=== PATIENT | male | born 1965 | race Caucasian/White ===

== ENCOUNTER 2016-08-10 18:13 | Emergency (ER) | payer MEDICAID ==
[2016-09-10 10:59] VITALS: BMI 23.8
== END 2016-08-10 21:35 | disposition left against medical advice (07) ==
LOC: D.ER 18:13
DX: S99.911A Unspecified injury of right ankle, initial encounter (principal)

== ENCOUNTER 2016-09-08 16:36 | Emergency (ER) | payer MEDICAID ==
[2016-09-10 10:59] VITALS: BMI 23.8
== END 2016-09-08 20:39 | disposition home or self-care (01) ==
LOC: D.ER 16:36
DX: M79.671 Pain in right foot (principal); Z76.5 Malingerer [conscious simulation]

== ENCOUNTER 2016-09-09 15:58 | Inpatient (IN) | payer MEDICAID ==
[~2016-09-09] VITALS: Ht 167.6 cm; Wt 67.0 kg
--- NOTE | ~2016-09-09 | HP ---
PATIENT: IBRAHIMA CHAVEZ MEDICAL RECORD: [id number] ACCOUNT: [id number] LOCATION:[id number] : 67 ADMISSION DATE: 09/09/16 HISTORY AND PHYSICAL EXAMINATION DATE OF OBSERVATION: 09/09/2016. 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 HISTORY OF PRESENT ILLNESS: This is a 50-year-old white male who came to [facility] yesterday complaining of right foot pain. He had x-rays of his foot and ankle and all the x-rays were negative. He was placed in a boot. The patient states that he fell down a grassy slope about a month ago, has been hurting ever since. He states his primary care doctor is Dr. Butcher but has not gone to see Dr. Butcher about this. I am not sure what was done in the Emergency Room on September 08, but when he came in on September 09, his blood alcohol level was 445. He became less responsive while he was in the hospital and he is assigned to observation. Urine drug screen was positive for benzodiazepines and he is admitted for further evaluation. In the ER, he was given Romazicon and ____, he did wake up to a degree. PAST MEDICAL AND SURGICAL HISTORY: Unknown. CURRENT MEDICATIONS: Denies any regular medications. HABITS: He quit smoking. He does admit to drinking about a pint of vodka every other day. He denies any illicit drug use. SOCIAL HISTORY: He lives alone. He is unemployed. FAMILY HISTORY: Father in his 30s in a helicopter crash. Mother at 53 of probable [place]. REVIEW OF SYSTEMS: Really not obtainable because he is mumbling most of his words. He is felt not to be reliable this time. PHYSICAL EXAMINATION: VITAL SIGNS: In the Emergency Room, temperature 98.2, pulse 72, respirations 16, blood pressure 111/71, O2 sats 100%. GENERAL: He will awaken, but basically mumbles most of his answers. SKIN: Warm and dry. HEENT: Grossly within normal limits. NECK: Supple. HEART: Regular rate and rhythm. LUNGS: Fairly clear. ABDOMEN: Soft, flat, nontender. EXTREMITIES: Right foot and ankle are out of the boot and I do not see any obvious deformity. There is no change in color, texture or temperature of the skin. He has generalized tenderness over the foot. X-ray report from yesterday of the ankle showed no acute fracture. X-ray report from yesterday of the foot showed no acute fracture. LABORATORY DATA: Magnesium was 1.9. Urine drug screen positive for benzodiazepines. CBC was essentially normal. Comprehensive metabolic panel is essentially normal. Blood alcohol level 445. HISTORY AND PHYSICAL [id number] IBRAHIMA CHAVEZ IMAGING: CT of the head was done and no acute intracranial process was seen. ASSESSMENT: 1. Acute alcohol intoxication. 2. Right foot pain, uncertain etiology. We will monitor overnight. Other tests and procedures as warranted. TRANSINT:[id number] Voice Confirmation ID: [id number] DOCUMENT ID: [id number] LAVERNE MULLINS MD CC: [id number] DICTATION DATE: 09/10/16 1604 COOKER OPERATOR: 09/10/16 1713 DIS IN 09/10/16 [facility] [address] [place] [address]
[2016-09-09 17:39] LABS: BASOPHILS 1.2 % (0.0-2.0); EOSINOPHILS 0.2 % (0-7); HEMATOCRIT 39.9 % (42.0-54.0); HEMOGLOBIN 13.2 g/dL (13.5-17.5); IMMATURE GRANULOCYTES 0.2 % (0-5); LYMPHOCYTES 22.2 % (15-50); MCH 31.3 pg (26.0-34.0); MCHC 33.1 g/dL (31.0-37.0); MCV 94.5 fL (80.0-100.0); MEAN PLATELET VOLUME 8.7 fL (7.4-10.4); MONOCYTES 9.1 % (2-11); NEUTROPHILS 67.1 % (40-80); PLATELET COUNT 284 10x3/uL (130-400); RBC 4.22 10x6/uL (4.20-6.10); RDW 14.3 % (11.5-14.5); WBC 5.7 10x3/uL (4.8-10.8)
[2016-09-09 17:59] LABS: ALBUMIN 3.8 g/dL (3.4-5.0); ALKALINE PHOSPHATASE 67 U/L (46-116); ALT (SGPT) 23 U/L (10-68); BILIRUBIN - TOTAL 0.15 mg/dL (0.2-1.3); CALC OSMOLALITY 285 mosm/kg (275-300); CALCIUM 8.4 mg/dL (8.5-10.1); CARBON DIOXIDE 26.8 mmol/L (21.0-32.0); CHLORIDE - SERUM 103 mmol/L (98-107); CREATININE - SERUM 0.7 mg/dL (0.6-1.3); GLUCOSE 156 mg/dL (74-106); POTASSIUM - SERUM 3.8 mmol/L (3.5-5.1); PROTEIN - SERUM 7.5 g/dL (6.4-8.2); SODIUM 142 mmol/L (136-145); UREA NITROGEN 12 mg/dL (7-18); eGFR NON AFRICAN AMERICAN > 90 mL/min (90-120)
[2016-09-09 18:02] LABS: UDS - AMPHET NEGATIVE QUAL (NEGATIVE); UDS - BARB NEGATIVE QUAL (NEGATIVE); UDS - BENZO POSITIVE QUAL (NEGATIVE); UDS - COCAINE NEGATIVE QUAL (NEGATIVE); UDS - METH NEGATIVE QUAL (NEGATIVE); UDS - OPIATE NEGATIVE QUAL (NEGATIVE); UDS - PCP NEGATIVE QUAL (NEGATIVE); UDS - THC NEGATIVE QUAL (NEGATIVE)
--- NOTE | 2016-09-09 22:15 | NUR ---
ARRIVED TO ROOM CV-05 VIA STRETCHER. COMPLETELY SATURATED IN URINE IN THE PERINEAL AREA AND BEHIND BACK. STREET CLOTHES REMOVED AND PLACED INTO HOSPITAL GOWN. MOVED SELF ONTO HOSPITAL BED SLOWLY. LEFT AC 20G PIV INTACT WITH A BANANA BAG INFUSING. PLACED ON IV PUMP @ 150ML/HR. PLACED ONTO CONTINUOUS CARDIAC MONITORING. NSR IN THE 70'S. 02 ON @ 2LPM/NC, DECREASED TO 1LPM. O2 SATS 100%. LUNG SOUNDS CLEAR, DIMINISHED IN THE BASES. SHALLOW RESPIRATIONS NOTED. URINAL PLACED ON SIDERAIL AND CALL BUTTON EXPLAINED. C/O RT FOOT PAIN. RT FOOT WITH +1 EDEMA TO ANKLE AREA. REPORTS WHEN ASKED HE BROKE IT. BRACE NOTED IN PATIENT BELONGING BAG. COMPLETE WIPE DOWN WITH BATH CLOTHES COMPLETED. IN PANTS POCKET: BLACK FLIP CELL PHONE; [facility]. ER CALLED TO GET PLACED IN SAFE. WILL MONITOR.
[2016-09-09 22:20] VITALS: BP 111/71
[2016-09-09 22:36] VITALS: BP 111/71; BMI 23.9
[2016-09-09 23:00] VITALS: BP 113/67
[2016-09-09 23:30] VITALS: BP 81/41
--- NOTE | 2016-09-09 23:56 | NUR ---
B/P TRENDING DOWN WHILE HE IS RESTIGN WITH EYES CLOSED. AWOKE AND TOOK B/P WHILE AWAKE AND SYSTOLIC 100'S. DENIES NEEDS WHEN ASKED. WILL MONITOR.
[2016-09-10] VITALS (20 sets, daily range): BP systolic 87–111; BP diastolic 46–69; Ht 167.6 cm; Wt 67.0 kg
--- NOTE | 2016-09-10 01:30 | NUR ---
EYES CLOSED. NO ACUTE DISTRESS NOTED. WILL MONITOR.
--- NOTE | 2016-09-10 02:44 | NUR ---
AWOKE AND SAT UP IN BED. ORIENTED TO THE HOSPITAL. DISORIENTED TO SITUATION. REORIENTED. WANTED ANOTHER WARM BLANKET AND SOME WATER. BLANKET GIVEN AND REASSESSMENT COMPLETED. SEE ASSESSMENT FLOWSHEET. MORE ALERT AT THIS TIME. DRANK 240ML OF WATER. BED ALARM TURNED BACK ON AFTER ALARMING WHEN HE SAT UP. WILL MONITOR.
--- NOTE | 2016-09-10 03:10 | NUR ---
URINATED 475ML OF CLEAR, ANABEL URINE INTO URINAL. MORE AWAKE AND CAN UNDERSTAND SPEECH MORE. TOLD HIM I WAS WAITING ON ER PERSONEL TO COME TAKE BELONGINGS TO SAFE SUCH WALLET ETC SITTING ON BEDSIDE TABLE. LOOKED AT WALLET AND WHEN WAS TOLD IT GOT WET FROM URINATING ON HIMSELF, HE PICKED UP THE WALLET AND SMELLED OF IT.
--- NOTE | 2016-09-10 03:40 | NUR ---
CALLED ER REGISTRATION TO COME GET VALUABLES. WILL NOT BE AVAILABLE TO COME TILL 8AM. INFORMED PATIENT OF SUCH.
--- NOTE | 2016-09-10 04:15 | NUR ---
ASKING FOR PAIN MEDICATION. INFORMED OF B/P LOW AND NOT ABLE TO HAVE ANY ORDERED AT THIS TIME. WILL MONITOR.
--- NOTE | 2016-09-10 04:30 | NUR ---
REMOVED O2. ON ROOM AIR O2 SATS 96%. WILL MONITOR.
--- NOTE | 2016-09-10 05:05 | NUR ---
SINGING TO HIMSELF.
--- NOTE | 2016-09-10 06:25 | NUR ---
EYES CLOSED. NO ACUTE DISTRESS NOTED. WILL MONITOR.
--- NOTE | 2016-09-10 07:53 | NUR ---
RECIEVED ASLEEP-REGULAR RESP -SR ON MONITOR-NOTED -STRONG ALCOHOL [id number] FROM PT-[facility]
[2016-09-10] MEDS ORDERED: TYLENOL W/CODEI1 TAB PO (16:10)
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
== END 2016-09-10 16:36 | disposition home or self-care (01) | DRG 897 ==
LOC: D.ER 15:58 → D.CLR 20:32 → D.CVICU 21:47
PROVIDERS: Nurse Practitioner Family; ADMIT Family Medicine
DX: F10.129 Alcohol abuse with intoxication, unspecified (principal); Y90.8 Blood alcohol level of 240 mg/100 ml or more; Z87.891 Personal history of nicotine dependence; M79.671 Pain in right foot

== ENCOUNTER 2016-09-30 10:48 | Emergency (ER) | payer MEDICAID ==
[2016-09-10 10:59] VITALS: BMI 23.8
[~2016-09-30 10:48] MED LIST: TYLENOL W/CODEI1 TAB PO
== END 2016-09-30 12:30 | disposition home or self-care (01) ==
LOC: D.ER 10:48
DX: M79.671 Pain in right foot (principal); M25.561 Pain in right knee

== ENCOUNTER 2016-09-30 14:24 | Emergency (ER) | payer MEDICAID | END 2016-09-30 16:38 | disposition left against medical advice (07) | LOC: D.ER 14:24 | DX: S80.01XA Contusion of right knee, initial encounter (principal); W10.9XXA Fall (on) (from) unspecified stairs and steps, initial encounter; Y93.89 Activity, other specified; Y92.89 Other specified places as the place of occurrence of the external cause; F17.200 Nicotine dependence, unspecified, uncomplicated ==

== ENCOUNTER 2016-10-01 16:29 | Emergency (ER) | payer MEDICAID ==
[2016-09-10 10:59] VITALS: BMI 23.8
== END 2016-10-01 17:30 | disposition home or self-care (01) ==
LOC: D.ER 16:29
DX: S80.01XA Contusion of right knee, initial encounter (principal); W10.9XXA Fall (on) (from) unspecified stairs and steps, initial encounter; Y93.89 Activity, other specified; Y92.019 Unspecified place in single-family (private) house as the place of occurrence of the external cause; F17.200 Nicotine dependence, unspecified, uncomplicated

== ENCOUNTER 2016-10-02 10:34 | Emergency (ER) | payer MEDICAID ==
[2016-09-10 10:59] VITALS: BMI 23.8
== END 2016-10-02 12:37 | disposition home or self-care (01) ==
LOC: D.ER 10:34
DX: M25.561 Pain in right knee (principal)

== ENCOUNTER 2016-10-08 11:24 | Emergency (ER) | payer MEDICAID ==
[2016-09-10 10:59] VITALS: BMI 23.8
== END 2016-10-08 13:15 | disposition home or self-care (01) ==
LOC: D.ER 11:24
DX: S00.03XA Contusion of scalp, initial encounter (principal); W10.9XXA Fall (on) (from) unspecified stairs and steps, initial encounter; Y93.89 Activity, other specified; Y92.89 Other specified places as the place of occurrence of the external cause; M25.561 Pain in right knee; M25.571 Pain in right ankle and joints of right foot

== ENCOUNTER 2016-10-09 01:09 | Emergency (ER) | payer MEDICAID ==
[2016-09-10 10:59] VITALS: BMI 23.8
[2016-10-09 03:44] LABS: UDS - AMPHET NEGATIVE QUAL (NEGATIVE); UDS - BARB NEGATIVE QUAL (NEGATIVE); UDS - BENZO POSITIVE QUAL (NEGATIVE); UDS - COCAINE NEGATIVE QUAL (NEGATIVE); UDS - METH NEGATIVE QUAL (NEGATIVE); UDS - OPIATE NEGATIVE QUAL (NEGATIVE); UDS - PCP NEGATIVE QUAL (NEGATIVE); UDS - THC NEGATIVE QUAL (NEGATIVE)
== END 2016-10-09 13:50 | disposition home or self-care (01) ==
LOC: D.ER 01:09
PROVIDERS: Emergency Medicine
DX: S93.601A Unspecified sprain of right foot, initial encounter (principal); W10.9XXA Fall (on) (from) unspecified stairs and steps, initial encounter; Y93.89 Activity, other specified; Y92.019 Unspecified place in single-family (private) house as the place of occurrence of the external cause; F10.10 Alcohol abuse, uncomplicated; F17.200 Nicotine dependence, unspecified, uncomplicated

== ENCOUNTER 2016-11-08 00:29 | Emergency (ER) | payer MEDICAID ==
[2016-09-10 10:59] VITALS: BMI 23.8
[2016-11-08 01:08] LABS: BASOPHILS 0.3 % (0-2); EOSINOPHILS 1.5 % (0-7); HEMATOCRIT 37.5 % (42.0-54.0); HEMOGLOBIN 12.4 g/dL (13.5-17.5); IMMATURE GRANULOCYTES 0.3 % (0-5); LYMPHOCYTES 21.1 % (15-50); MCH 31.8 pg (26.0-34.0); MCHC 33.1 g/dL (31.0-37.0); MCV 96.2 fL (80.0-100.0); MONOCYTES 7.4 % (2-11); NEUTROPHILS 69.4 % (40-80); PLATELET COUNT 248 10x3/uL (130-400); RDW 15.1 % (11.5-14.5); WBC 7.3 10x3/uL (4.8-10.8)
[2016-11-08 01:30] LABS: ALBUMIN 3.7 g/dL (3.4-5.0); ALKALINE PHOSPHATASE 72 U/L (46-116); ALT (SGPT) 27 U/L (10-68); CALC OSMOLALITY 289 mosm/kg (275-300); CALCIUM 8.5 mg/dL (8.5-10.1); CARBON DIOXIDE 27.2 mmol/L (21.0-32.0); CHLORIDE - SERUM 110 mmol/L (98-107); CREATININE - SERUM 0.9 mg/dL (0.6-1.3); POTASSIUM - SERUM 3.5 mmol/L (3.5-5.1); PROTEIN - SERUM 7.3 g/dL (6.4-8.2); SODIUM 146 mmol/L (136-145); UREA NITROGEN 9 mg/dL (7-18); eGFR NON AFRICAN AMERICAN > 90 mL/min (90-120)
[2016-11-08 01:31] LABS: GLUCOSE 101 mg/dL (74-106)
== END 2016-11-08 03:56 ==
LOC: D.ER 00:29
PROVIDERS: Emergency Medicine
DX: S39.012A Strain of muscle, fascia and tendon of lower back, initial encounter (principal); S33.5XXA Sprain of ligaments of lumbar spine, initial encounter; W19.XXXA Unspecified fall, initial encounter; F10.129 Alcohol abuse with intoxication, unspecified

== ENCOUNTER 2017-11-11 21:11 | Emergency (ER) | payer MEDICAID ==
[~2017-11-11] VITALS: Ht 167.6 cm; Wt 73.2 kg
[2017-11-11 21:14] VITALS: Ht 167.6 cm; Wt 73.2 kg
[2017-11-11] MEDS ORDERED: CLONAZEPAM2 MG/TAB PO (21:18)
[2017-11-11] MEDS ORDERED: VISTARIL50 MG PO (21:18)
[2017-11-11] MEDS ORDERED: KLONOPIN1 MG PO (22:17)
[2017-11-11 22:32] VITALS: BP 128/79
== END 2017-11-11 22:30 | disposition home or self-care (01) ==
LOC: D.ER 21:11
DX: F41.1 Generalized anxiety disorder (principal)

== ENCOUNTER 2019-02-17 18:52 | Emergency (ER) | payer MEDICAID ==
[~2019-02-17] VITALS: Ht 167.6 cm; Wt 71.8 kg
[2019-02-17 18:52] VITALS: BP 123/82; Ht 167.6 cm; Wt 71.8 kg
[~2019-02-17 18:52] MED LIST changes: +CLONAZEPAM2 MG/TAB PO; +KLONOPIN1 MG PO; +VISTARIL50 MG PO
== END 2019-02-17 20:50 | disposition home or self-care (01) ==
LOC: D.ER 18:52
DX: S01.81XA Laceration without foreign body of other part of head, initial encounter (principal); W19.XXXA Unspecified fall, initial encounter; F10.10 Alcohol abuse, uncomplicated; S00.81XA Abrasion of other part of head, initial encounter